=== PATIENT | male | born 1980 | race Two or more races ===

== ENCOUNTER 2025-01-29 13:21 | Emergency (ER) | payer OTHER ==
[~2025-01-29] VITALS: Ht 175.3 cm; Wt 88.5 kg
[2025-01-29 13:28] VITALS: BP 122/83; TEMP 98.2; O2SAT 98
== END 2025-01-29 15:52 ==
LOC: ER 13:34
DX: M25.532 Pain in left wrist (principal); E11.9 Type 2 diabetes mellitus without complications
CPT/HCPCS: 73110